=== PATIENT | female | born 1970 | race Caucasian/White ===

== ENCOUNTER 2020-11-01 19:50 | Emergency (ER) | payer BC, SELFPAY ==
[2020-11-01 20:00] VITALS: BP 131/80; PULSE 80; RESP 18; TEMP 36.6; O2SAT 97; BMI 31.1
--- NOTE | 2020-11-01 21:09 | HMH.EDUTC ---
[facility] [place] Clinical Impression: Exposure to COVID-19 virus Disposition: Home, Self-Care Condition on Discharge: Good Instructions: DI for COVID-19 (Suspected or Confirmed ), Preventing the Spread of Coronavirus Discharge Instructions Additional Instructions: Drink plenty of fluids. Take tylenol for pain or fever. Return if you begin to have difficulty breathing. Follow up with your regular doctor. GO TO THE ER FOR ANY WORSENING SYMPTOMS Quarantine until you know the results of your covid-19 test. If it is positive, the health department should call you and give you further instructions about your length of Quarantine and other things. Notify your school or workplace of your results and follow their instructions regarding return to work/school. Referrals: Gilbert Hernandez MD [Primary Care Provider] - Time of Disposition: 21:10 Medical Decision Making - Medical Records Medical records reviewed: No: I reviewed the patient's medical records. - Walter Inquiry Pt receiving controlled substance: No Vital Signs: 11/01/20 20:00 11/01/20 21:11 Temperature 97.9 F 97.9 F Temperature Source Oral Pulse Rate 80 Pulse Rate [Right Brachial] 80 Respiratory Rate 18 18 Blood Pressure 131/80 Blood Pressure [Right Arm] 131/80 Blood Pressure Mean [Right Arm] 97 Blood Pressure Source [Right Arm] Automatic Cuff Blood Pressure Position [Right Arm] Sitting 02 Sat by Pulse Oximetry 97 Oxygen Delivery Method Room Air Orders (Tests/Meds): ORDERS Category Date Time Status Covid-19 Nasal PCR ([facility]) Routine Lab 11/01/20 20:10 Received [facility] [place] HPI - General Stated complaint: covid test Time Seen by Provider: 11/01/20 20:10 Mode of Arrival: Ambulatory Source of Information: Patient Limitations: No Limitations Description of Symptoms (Recalled from Triage Doc. by RN): COVID TEST D/T EXPOSURE. C/O RUNNY NOSE AND EARACHE HEENT Symptoms (Recalled from RN notes): No Resp Symptoms (Recalled from RN notes): No Skin Symptoms (Recalled from RN notes): No MS Symptoms (Recalled from RN notes): No Functional Status (Recalled from RN notes): wnl - Related Data Home Medications Medication Instructions Recorded Confirmed lisinopril 10 mg tablet 10 mg PO DAILY 09/19/17 rosuvastatin 40 mg tablet 40 mg PO DAILY 09/19/17 fluticasone propionate 50 1 spray INTRANASAL DAILY 08/28/18 08/28/18 mcg/actuation nasal spray,suspension Previous Rx's Medication Instructions Recorded cetirizine 10 mg capsule 10 mg PO DAILY #30 cap 08/28/18 Allergies Allergy/AdvReac Type Severity Reaction Status Date / Time Penicillins Allergy Verified 08/28/18 12:54 - Worker's Comp Is this a Worker's Comp case?: No [facility] History - Hepatitis A Screen Drug use history?: No High risk sexual behaviors?: No History of sexually transmitted infection?: No Currently employed?: No Childcare worker?: No Do you have indoor plumbing?: Yes Do you have electricity?: Yes Attestation statement:: This patient has been screened for Hepatitis A risk factors. I have reviewed the patient's past medical history: Yes Medical History: Reports:: Hyperlipidemia, Hypertension Denies:: Cancer, Diabetes Mellitus Type 1, Diabetes Mellitus Type 2, MRSA Other Surgeries: Yes: No Previous Surgery Amputation: No Fractures: No - Social History Smoking Status: Never smoker Tobacco Type: cigarettes Alcohol Intake: current Alcohol Intake Frequency:: a few times a month Substance Use Type: denies use Occupational Status: employed Housing: house Household Members: family Family Hx:: No significant family history ROS Obtained: Yes All systems reviewed & no additional complaints - Constitutional Constitutional: Reports system reviewed and no additional complaints, except as docu - Eyes Eyes: Reports system reviewed and no additional complaints, except as docu - ENT Ears, Nose, Mouth, and Throat: Reports system review
[2020-11-01 21:11] VITALS: BP 131/80; PULSE 80; RESP 18; TEMP 36.6; O2SAT 97
== END 2020-11-01 21:16 | disposition home or self-care (01) ==
PROVIDERS: Emergency Provider Nurse Practitioner Family; PCP Family Medicine
DX: Z20.822 Contact with and (suspected) exposure to COVID-19 (principal); R09.81 Nasal congestion; H92.03 Otalgia, bilateral; E78.5 Hyperlipidemia, unspecified; I10 Essential (primary) hypertension
CPT/HCPCS: 99202; C9803; G0463; U0003; U0005

== ENCOUNTER → 2021-03-23 10:24 | Outpatient (CLI) | payer BC, SELFPAY | PROVIDERS: Visit Provider Nurse Practitioner | DX: U07.1 COVID-19 (principal) | CPT/HCPCS: C9803; U0003; U0005 ==

== ENCOUNTER → 2021-04-24 10:46 | Outpatient (CLI) | payer BC, SELFPAY ==
--- NOTE | 2021-04-24 11:20 | ECG_ITS ---
APPROVED REPORT Exam: Resting ECG HR:85 bpm ECG Measurements Heart Rate 85 AXES NJ 142 P 34 QRSd 97 QRS 52 QT 344 T 28 QTc 386 Conclusion SINUS RHYTHM NORMAL ECG UNCONFIRMED REPORT Electronically signed by : Raul Deglado MD 04/24/2021 17:26:25
[2021-04-24 11:43] LABS: Basophils # 0.1 K/mm3 (0-0.2); Basophils % 1.7 % (0.1-2.0); Eosinophils # 0.1 K/mm3 (0.0-0.4); Eosinophils % 1.4 % (0.1-12.0); Hematocrit 39.5 % (37.0-47.0); Hemoglobin 12.9 g/dL (12.2-16.2); Lymphocytes # 2.5 K/mm3 (0.7-4.5); Mean Corpuscular HGB Conc 32.7 g/dL (31.8-35.4); Mean Corpuscular Hemoglobin 29.9 pg (27.0-31.2); Mean Corpuscular Volume 91.5 fl (81-99); Mean Platelet Volume 8.6 fl (7.4-10.4); Monocytes # 0.4 K/mm3 (0.1-1.0); Monocytes % 5.4 % (1.7-9.3); Neutrophils # 4.2 K/mm3 (1.8-7.8); Neutrophils % 57.5 % (37.0-80.0); Platelet Count 266 K/mm3 (142-424); Red Blood Count 4.31 M/mm3 (4.20-5.40); Red Cell Distribution Width 13.4 % (11.5-17.5); White Blood Count 7.3 K/mm3 (4.8-10.8)
[2021-04-24 11:49] LABS: Chloride 101 mmol/L (98-107); Sodium 134 mmol/L (136-145)
[2021-04-24 11:51] LABS: Blood Urea Nitrogen 14 mg/dl (7-17); Estimated Glomerular Filt Rate 105 ml/min (>60); GFR (African American) 127 ML/MIN (>60)
[2021-04-24 11:52] LABS: Alanine Aminotransferase 16 U/L (12-78); Albumin Level 4.4 g/dl (3.5-5.0); Albumin/Globulin Ratio 1.6 (1.1-1.8); Alkaline Phosphatase 81 U/L (38-126); Aspartate Amino Transferase 25 U/L (14-36); Bilirubin,Total 0.6 mg/dl (0.2-1.3); Calcium 8.3 mg/dl (8.4-10.2); Carbon Dioxide 24 mmol/L (22.0-30.0); Cholesterol 154 mg/dl (140-200); Globulin 2.8 g/dL (1.3-3.2); Glucose 90 mg/dl (74-100); Total Protein,Serum 7.2 g/dl (6.3-8.2); Triglycerides 142 mg/dl (30-150); VLDL Cholesterol 28 mg/dL (0-40)
[2021-04-24 11:53] LABS: HDL Cholesterol 52 mg/dl (40-60)
[2021-04-24 12:04] LABS: Direct LDL Cholesterol 80.18 mg/dL (100-129)
[2021-04-24 12:22] LABS: 25-OH Vitamin D, Total 68.9 ng/mL (30-100)
[2021-04-24 12:25] LABS: Thyroid Stimulating Hormone 1.77 uIU/mL (0.465-4.68)
[2021-04-24 13:28] LABS: Creatinine,Urine Random 32 mg/dL (Not Estab.)
[2021-04-24 13:32] LABS: Microalbumin/Creatinine Ratio 19.3
[2021-04-24 17:08] LABS: Hemoglobin A1C 5.7 % (4.0-6.0)
== END ==
PROVIDERS: PCP Family Medicine; Visit Provider Family Medicine
DX: R00.0 Tachycardia, unspecified (principal); I10 Essential (primary) hypertension; E78.2 Mixed hyperlipidemia; R73.01 Impaired fasting glucose; E55.9 Vitamin D deficiency, unspecified
CPT/HCPCS: 36415; 80053; 80061; 82043; 82306; 82570; 83036; 84443; 85025; 93005

== ENCOUNTER → 2021-10-03 11:24 | Outpatient (CLI) | payer BC, OTHER, SELFPAY ==
--- NOTE | 2021-10-03 11:27 | XR_ITS ---
FINAL REPORT CLINICAL HISTORY: RT KNEE PAIN FINDINGS: RIGHT KNEE 3 views of the right knee were obtained. There is no acute fracture or dislocation. Visualized joint spaces are normally aligned. Soft tissues are unremarkable. IMPRESSION: No acute bony abnormality. Reviewed, Interpreted and Dictated by Shamir Brwon MD Transcribed by Tracy Gross Authenticated and [facility]
== END ==
PROVIDERS: PCP Family Medicine; Visit Provider Physician Assistant
DX: M25.561 Pain in right knee (principal)
CPT/HCPCS: 73562

== ENCOUNTER → 2021-11-07 08:57 | Outpatient (CLI) | payer BC, OTHER, SELFPAY ==
--- NOTE | 2021-11-07 09:15 | MR_ITS ---
FINAL REPORT TECHNIQUE: Multiplanar MR without contrast CLINICAL HISTORY: ACUTE PAIN OF RIGHT KNEE. KNEE INSTABILITY. MEDIAL SIDED KNEE PAIN. SYMPTOMS 6 MONTHS. NO INJURY OR TRAUMA. FINDINGS: Articular cartilage: Localized thinning of the medial tibial plateau. Remaining articular cartilage unremarkable. Marrow signal: Moderate marrow edema in the medial tibial plateau likely a combination of cartilage disease and meniscal disease. Joint fluid: Small joint effusion. Menisci: Macerated tear of the root of the anterior horn of the medial meniscus. Radial tear of the root of the posterior horn of the medial meniscus. Lateral meniscus intact. Ligaments: Collateral and cruciate ligaments intact IMPRESSION: Medial meniscal tears as above. Significant marrow edema in the medial tibial plateau as described is likely symptomatic. Reviewed, Interpreted and Dictated by Felicia Cotton MD Transcribed by Tonny Doll Authenticated and [facility]
== END ==
PROVIDERS: PCP Family Medicine; Visit Provider Physician Assistant
DX: M25.561 Pain in right knee (principal)
CPT/HCPCS: 73721

== ENCOUNTER → 2022-10-13 15:08 | Outpatient (CLI) | payer BC, OTHER, SELFPAY ==
--- NOTE | 2022-10-13 15:19 | ECG_ITS ---
APPROVED REPORT Exam: Resting ECG HR:77 bpm ECG Measurements Heart Rate 77 AXES WA 143 P 7 QRSd 99 QRS 67 QT 348 T -15 QTc 380 Conclusion SINUS RHYTHM WITH SINUS ARRHYTHMIA NONSPECIFIC ST & T-WAVE ABNORMALITY ABNORMAL ECG UNCONFIRMED REPORT Electronically signed by : Raul Delgado MD 10/13/2022 19:54:17
--- NOTE | 2022-10-13 15:31 | XR_ITS ---
FINAL REPORT CLINICAL HISTORY: Pre op, cough FINDINGS: Two views of the chest were obtained. The heart size and pulmonary vascularity are within normal limits. The mediastinum is normal. No acute pulmonary abnormality is identified. There is no pneumothorax. The bony thorax is intact. IMPRESSION: No active cardiopulmonary disease. Reviewed, Interpreted and Dictated by Dmitry Hays III, MD Transcribed by Molly England Authenticated and [facility]
[2022-10-13 17:11] LABS: Basophils % 0.3 % (0.1-2.0); Eosinophils # 0.1 K/mm3 (0.0-0.4); Eosinophils % 1.2 % (0.1-12.0); Hematocrit 41.4 % (37.0-47.0); Hemoglobin 13.9 g/dL (12.2-16.2); Lymphocytes # 3.1 K/mm3 (0.7-4.5); Lymphocytes % 35.6 % (10-50); Mean Corpuscular HGB Conc 33.5 g/dL (31.8-35.4); Mean Corpuscular Hemoglobin 30.7 pg (27.0-31.2); Mean Corpuscular Volume 91.7 fl (81-99); Mean Platelet Volume 8.8 fl (7.4-10.4); Monocytes # 0.6 K/mm3 (0.1-1.0); Monocytes % 6.7 % (1.7-9.3); Neutrophils % 56.3 % (37.0-80.0); Platelet Count 296 K/mm3 (142-424); Red Blood Count 4.51 M/mm3 (4.20-5.40); Red Cell Distribution Width 12.8 % (11.5-17.5); White Blood Count 8.8 K/mm3 (4.8-10.8)
[2022-10-13 17:42] LABS: Chloride 100 mmol/L (98-107)
[2022-10-13 17:43] LABS: Potassium 3.9 mmoL/L (3.5-5.1); Sodium 138 mmol/L (136-145)
[2022-10-13 17:45] LABS: Alanine Aminotransferase 16 U/L (12-78); Alkaline Phosphatase 90 U/L (38-126); Aspartate Amino Transferase 26 U/L (14-36); Bilirubin,Total 0.3 mg/dl (0.2-1.3); Blood Urea Nitrogen 19 mg/dl (7-17); Estimated Glomerular Filt Rate 87 ml/min (>60); GFR (African American) 106 ML/MIN (>60)
[2022-10-13 17:46] LABS: Albumin Level 4.3 g/dl (3.5-5.0); Albumin/Globulin Ratio 1.3 (1.1-1.8); Anion Gap 13.9 mEq/L (5-15); Calcium 10.1 mg/dl (8.4-10.2); Carbon Dioxide 28 mmol/L (22.0-30.0); Globulin 3.2 g/dL (1.3-3.2); Glucose 79 mg/dl (74-100); Total Protein,Serum 7.5 g/dl (6.3-8.2)
== END ==
PROVIDERS: PCP Family Medicine; Visit Provider Orthopaedic Surgery
DX: Z01.818 Encounter for other preprocedural examination (principal); S83.241D Other tear of medial meniscus, current injury, right knee, subsequent encounter
CPT/HCPCS: 36415; 71046; 80053; 85025; 93005

== ENCOUNTER 2022-10-20 08:28 | Day surgery (SDC) | payer BC, OTHER, SELFPAY ==
[2022-10-19 13:44] VITALS: BMI 30.4
[2022-10-20] VITALS (8 sets, daily range): BP systolic 123–163; BP diastolic 60–89; PULSE 70–88; RESP 14–18; TEMP 36.3–37; O2SAT 95–99
[2022-10-20 09:19] LABS: Urine Pregnancy, HCG Qual. Negative (Negative)
--- NOTE | 2022-10-20 09:45 | EXP.ANES.CKL ---
[facility] Disclaimer: The information contained in this section may have been updated after the patient was seen, as this information can be updated by other users. Medical History Allergies Edema History of COVID-19 Hyperlipidemia Hypertension Sinus headache Skin cancer Urinary tract infection Surgical History No significant past surgical history Family History Other Heart disease Pacemaker Social History Smoking Status: Never smoker alcohol intake: never substance use type: denies use current occupational status: employed Travel in the last 8 weeks: None household members: family housing: house [facility] Anesthesia Checklist Patient Identification Patient Identification: Arm Band Structural Data Admitted From: Home Planned Operative Procedure/s: Right Knee Arthroscopy, Partial Medial Meniscectomy Consent for Planned Operative Procedure(s) Verified: Yes Verified Documents: Surgical Consent and History and Physical NPO Status Verified Time NPO: 00:00 Additional verifications Anesthesia Reactions: No Hx Blood Transfusions: No Airway Assessment Mallampati Score:: Class II C-Spine Mobility Assessed: Yes TMJ Mobility Assessed: Yes Dentition: Good Dentition Neurological Assessment Level of Consciousness: Awake and Alert Anesthesia Plan Anesthesia Risk discussed: Yes Anesthesia Plan: Verified ASA Class: II Anesthesia Type: General
--- NOTE | 2022-10-20 11:11 | EXP.OP.NOTE ---
Date of procedure: 10/20/22 Pre-op Diagnosis:: Right knee medial meniscus tear Post-op Diagnosis:: Right knee medial meniscus tear Procedure performed:: Right knee arthroscopy with partial medial meniscectomy Surgeon:: Bernabe Lundberg MD Radiotelephone Operator(s):: None STATISTICAL PROGRAMMER:: Other Anesthesia: GETA and local Estimated blood loss (mL): 5 Clinical Note:: Lakisha is a pleasant 52-year-old female struggling with right knee pain secondary to a medial meniscus tear. 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 Right knee cortisone injections have provided temporary relief and she takes occasional ibuprofen. A right knee MRI revealed mild degenerative changes and a radial tear posterior horn medial meniscus. We discussed all the risks, benefits and alternatives to right knee arthroscopy for partial medial meniscectomy and she agreed to proceed. Surgical consent form was signed. Operative findings:: Right knee radial tear posterior horn medial meniscus with undersurface flap tear. Mild chondromalacia medial compartment. Operative note:: The patient was seen in the preoperative holding area. The right knee was marked to confirm the correct operative site. She was seen by anesthesia. She received Ancef 2 g IV prophylactic antibiotics within 1 hour of incision time. She was brought back to the OR. General anesthesia induced without difficulty. Right lower extremity prepped and draped in the usual sterile fashion. Timeout performed to confirm right knee arthroscopy on patient Lakisha Soliman. I made an anterolateral viewing portal with an 11 blade scalpel. Arthroscope was introduced into the knee joint. Diagnostic arthroscopy commenced. Anteromedial portal was established with a spinal needle and then an 11 blade scalpel as well. This was dilated with a trocar. There was minimal chondromalacia of the patellofemoral compartment with no full-thickness cartilage loss or no unstable cartilage flaps. Evaluation of the medial compartment revealed a radial tear posterior horn of the medial meniscus with an unstable inferior flap tear. This was treated with a partial medial meniscectomy using a straight biter and a 4.0 mm shaver to resect out the unstable inferior flap and ellipse out the radial tear back to a smooth stable border. The root attachment was intact. There was some mild chondromalacia of the medial femoral condyle and medial tibial plateau that was debrided with a shaver. There was a small area of full-thickness cartilage loss medial aspect medial femoral condyle and medial tibial plateau. Cruciate ligaments were seen to be intact. She was placed in the [id number] position. We entered the lateral compartment. There was some mild fraying of the lateral meniscus but no lateral meniscus tear. Minimal chondromalacia of the lateral compartment. At this time arthroscopy instruments removed from the joint. Arthroscopy fluid suctioned and drained from the joint. Portals closed with 4-0 Monocryl subcuticular sutures. I injected 20 cc of half percent naropin into the knee from the superolateral approach. Sterile dressing was applied with Steri-Strips, Xeroform, 4 x 4's, soft roll and Prince bandage. Anesthesia reversed without difficulty. All sponge and needle counts correct x2. Postoperative plan: She will be discharged home from recovery. We will prescribe oxycodone for pain and aspirin for DVT prophylaxis. Weight-bear as tolerated with crutch assist as needed. Follow-up in the office in 3 weeks. Tourniquet time (min): 0 Condition: stable Disposition: PACU Specimens:: None Complications:: None
--- NOTE | 2022-10-21 07:42 | P.PNANES_ITS ---
[facility] Anesthesia Record Part I Anesthesia Record I Intake, IV Amount: 1,000 Hydration: Adequate Estimated blood loss (mL): 5 Urine output (mL): 0 Blood Products used (#): none Blood Pressure: 137/66 SaO2: 96 Pulse Rate: 85 Airway Patency: Patent Respiratory Rate: 14 Temperature: 97.4 F Patient is:: Drowsy and Stable Stable to PACU at:: 11:00 (10/20/22) Comments:: Procedure performed by Felicia Hernadez CRNA
[2022-10-21 07:44] VITALS: BP 137/66; PULSE 85; RESP 14; TEMP 36.3; O2SAT 96
--- NOTE | 2022-10-21 07:44 | P.PNANES_ITS ---
[facility] Anesthesia Record Part II Anesthesia Record Part II Discharge Time: 11:30 Destination: Surgical Day Care (OP Surgery) PACU nurse assessment reviewed?: Yes Patient Condition:: Good Anesthesia Complications:: None Swallowing reflex intact?: Yes Airway Patency: Patent Cyanosis?: No Blood Pressure: 132/79 SaO2: 96 Respiratory Rate: 16 Pulse Rate: 70 Temperature: 98.5 F Mental Status: Alert & Oriented Pain level:: 3 Nausea and/or vomitting:: None Intake, IV Amount: 0 Hydration: Adequate
[2022-10-21 07:45] VITALS: BP 132/79; PULSE 70; RESP 16; TEMP 36.9; O2SAT 96
== END 2022-10-20 12:06 | disposition home or self-care (01) ==
PROVIDERS: PCP Family Medicine; Visit Provider Orthopaedic Surgery
PROC: (CPT 29870; principal; 2022-10-20 10:15)
DX: S83.241A Other tear of medial meniscus, current injury, right knee, initial encounter (principal); M17.11 Unilateral primary osteoarthritis, right knee; M25.561 Pain in right knee; I10 Essential (primary) hypertension
CPT/HCPCS: 29881; 81025; 96374

== ENCOUNTER → 2022-12-14 14:57 | Outpatient (CLI) | payer BC, OTHER, SELFPAY ==
--- NOTE | 2022-12-14 15:00 | XR_ITS ---
FINAL REPORT CLINICAL HISTORY: Lt knee pain COMPARISON: None FINDINGS: AP, lateral and oblique views of the left knee were obtained. There is no prior exam for comparison. There is no acute osseous abnormality of the left knee. The joint space is preserved. The soft tissues are normal. There is no joint effusion. IMPRESSION: No acute osseous abnormality of the left knee. Reviewed, Interpreted and Dictated by Ara Jha MD Transcribed by Isdira Escobedo Authenticated and [facility]
== END ==
PROVIDERS: PCP Family Medicine; Visit Provider Orthopaedic Surgery
DX: M17.12 Unilateral primary osteoarthritis, left knee (principal)
CPT/HCPCS: 73562

== ENCOUNTER 2023-01-20 10:00 | Outpatient (RCR) | payer BC, OTHER, SELFPAY ==
--- NOTE | 2022-11-24 16:53 | HMH.PTOPEV ---
PT Outpatient Evaluation Rehab PT Outpatient Evaluation Start: 11/24/22 14:57 Freq: Status: Active Protocol: Document 11/24/22 14:57 GREGLALIT (Rec: 11/24/22 16:53 RUPERT [id number]) E-signed By Elizabeth Mcnally, PT Outpatient Therapy Subjective History Subjective History Pt is a 52 y/o female who reports to PT s/p R knee arthroscopy with partial medial meniscectomy performed on 10/20/22. Pt denies complications following the surgery. Pt reports she was doing well until 3 weeks after surgery then she started having stiffness and soreness of the right knee. Pt reports she has been WBAT since the surgery and doing well ambulating without an AD. Pt reports the knee does seem to buckle on her with prolonged walking. Pt reports she does have swelling of the R knee with increased activity, denies numbness or tingling. Pt reports she has been using her stationary bike at home, bending/straightening the knee , doing ankle pumps and quad sets on her own since surgery. Pt also states she injured her left knee Wednesday while stepping up into a camper with her left leg. Pt reports she heard a pop with sudden pain of the posterior and lateral knee with inability to bear weight on the LLE until Wednesday . Pt reports she has been experiencing buckling of the L knee as well with noted swelling following the injury. Pt reports she continues to have severe posterolateral calf pain from this. Pt reports she returns to Dr. Lundberg for a follow-up visit on December 09. Occupation: [employer], [employer]visor [employer] Medical History: Hyperlipidemia, Hypertension New diagnosis of cancer in past 12 No months? Chief Complaint Pain,Stiff,Clicks,Swelling, Catches/Locks,Gives out/ Unstable Symptom Type Ache,Sharp,Dull Symptoms Relieved By Rest/Positioning,Heat,Ice,OTC Meds Symptoms Aggravated By Standing,Physical Activity, Twisting,Walking Prior Functional Limitations None Current Functional Limitations Housework,Dressing,Sleeping, Standing,Recreation Activity, Walking,Stairs Symptom Description Intermittent Level of pain today (0-10) 0 Pain scale - at its best (0-10) 5 Pain scale - at its worst (0-10) 9 Hip/Knee Eval Gait Observation General Gait Pattern Observation Antalgic Gait,Decrease Weight Bear (L) Assistive Device Assistive Devices None / NA Palpation Tenderness left Knee Palpation Finding Tenderness Knee Palpation Overall Comment lateral calf, lateral joint line right Knee Palpation Finding Tenderness Knee Palpation Overall Comment anterior knee, medial joint line MMT left Hip Flexion Strength Grade 5 Normal Hip Abduction Strength Grade 4 Good Hip Adduction Strength Grade 4 Good Hip Extension Strength Grade 4 Good Knee Extension Strength Grade 5 Normal Knee Flexion Strength Grade 4 Good right Hip Flexion Strength Grade 5 Normal Hip Abduction Strength Grade 4 Good Hip Adduction Strength Grade 4 Good Hip Extension Strength Grade 4 Good Knee Extension Strength Grade 4 Good Knee Flexion Strength Grade 4 Good ROM left Knee Extension Active Range of Motion ( 0 degrees) Knee Flexion Active Range of Motion ( 125 degrees) right Knee Extension Active Range of Motion ( 0 degrees) Knee Flexion Active Range of Motion ( 122 degrees) Sensation bilateral Comment equal and intact to light touch sensation bilaterally Effusion joint effusion knee exam standard bilateral Mid - Patellar Circumerential Measure ( 39 cm) Special Tests Knee Anterior Prisiclla Test Negative Left Knee Posterior Sag (Westfall Drawer) Test Negative Left Knee Valgus Stress Test Negative Left Knee Varus Stress Test Negative Left Knee Rosa Maria Test Negative Left Ankle/Foot Eval MMT left Ankle Plantarflexion Strength Grade 4- Good- Lower Extremity Functional Index Activities Today, do you or would you have any difficulty at all with: a.Any of your usual work, housework or Quite a bit of difficulty school activities b. Your usual hobbies, recreational or Quite a bit of difficulty sporting activities c. Getting into or out of the bath Moderate difficulty d. Walking between rooms Moderate difficulty e. Putting on your shoes or socks A little bit of difficulty f. Squatting Extreme difficulty or unable to perform activity g. Lifting an object, like a bag of A little bit of difficulty groceries from the floor h. Performing light activities around A little bit of difficulty your home i. Performing heavy activities around Extreme difficulty or unable your home to perform activity j. Getting into or out of a car A little bit of difficulty k. Walking 2 blocks Extreme difficulty or unable to perform activity l. Walking a mile Extreme difficulty or unable to perform activity m. Going up or down 10 stairs (about 1 Quite a bit of difficulty flight of stairs) n. Standing for 1 hour Extreme difficulty or unable to perform activity o. Sitting for 1 hour Extreme difficulty or unable to perform activity p. Running on even ground Extreme difficulty or unable to perform activity q. Running on uneven ground Extreme difficulty or unable to perform activity r. Making sharp turns while running fast Extreme difficulty or unable to perform activity s. Hopping Extreme difficulty or unable to perform activity t. Rolling over in bed Moderate difficulty LEFI Score Lower Extremity Functional Index Score 21 Outpatient Therapy Assessment Impairments Problems/Impairmments Palpation Tenderness,Impaired Range of Motion,Impaired Strength,Impaired Gait Pattern ,Impaired Walking,Impaired Standing,Impaired Dressing, Impaired Household Care, Impaired Stair Climbing, Impaired Incline Stepping, Impaired Stepping on Uneven Surface,Impaired Squatting, Increased Edema,Subjective C/O Pain,Impaired Self Care/Self Management Prognosis Rehab Potential Good Clinical Impression Consistent with Diagnosis Yes Short Term Goals Number of Weeks 3 Decrease Subjective C/O Pain Yes: Improve pain at worst to 7/10 to improve overall QOL Improve Self Care/Self Management Yes: Improve LEFS score to at least 40/80 to improve overall QOL Patient to be Ind w/ HEP Yes Mcfp Goals Number of Weeks 6 Increase Range of Motion Yes: Improve R knee AROM to 0- 125 Increase Strength Yes: Improve LE MMT to 4+-5/5 to assist with function Improve Ability to Climb Stairs Yes: 1 flight with 1 HR recirpocally to assist with community navigation Improve Ability to Squat Yes Decrease Edema Yes Decrease Subjective C/O Pain Yes: Improve pain at worst to 5/10 to improve overall QOL Improve Self Care/Self Management Yes: Improve LEFS score to at least 60/80 to improve overall QOL Patient to be Ind w/ Advanced HEP Yes Outpatient Therapy Plan of Care Treatment Plan May Include Therapeutic Exercise Including Home Yes Exercise Program Manual Therapy Techniques Yes Neuromuscular Re-education Yes Therapeutic Activities to Return to Yes Previous Functional/Work Level ADL/Self Care Education Yes Dry Needling Yes Thermal Modalities Yes Electrical Stimulation Yes Ultrasound/Phonophoresis Yes Iontophoresis Yes Orthotics/Bracing/Splinting Yes Vasopneumatic Compression Pump Yes Massage Yes Group Therapy for Medicare Yes Eval/Re-Eval Yes Frequency Times per week 2 Duration Number of Weeks 4-6 Addendums This patient is a candidate for social No or vocational rehab? Patient/Guardian verbally acknowledges Yes understanding of treatment program and consents to further treatment? Patient/Guardian verbally acknowledges Yes understanding of diagnosis, prognosis and goals for treatment? Eval Complexity PT Charges 85621 - Low Complexity Shoulder/Elbow Eval Shoulder Objective Measurements Elbow Objective Measurements PHYSICIAN CERTIFICATION: I certify the specified therapy services for Lakisha Lauraon are required, authorized, and reviewed every 30 days.
--- NOTE | 2022-12-21 13:59 | HMH.RHREAS ---
Rehab Reassessment Rehab OP Re-assessment Start: 11/24/22 14:57 Freq: Status: Active Protocol: Document 12/21/22 13:15 MARTÍNEZYADIRA (Rec: 12/21/22 13:59 GUILHERMEBilly [id number]) E-signed By Elizabeth Mcnally PT Lower Extremity Functional Index Activities Today, do you or would you have any difficulty at all with: a.Any of your usual work, housework or A little bit of difficulty school activities b. Your usual hobbies, recreational or A little bit of difficulty sporting activities c. Getting into or out of the bath No difficulty d. Walking between rooms No difficulty e. Putting on your shoes or socks No difficulty f. Squatting A little bit of difficulty g. Lifting an object, like a bag of No difficulty groceries from the floor h. Performing light activities around No difficulty your home i. Performing heavy activities around A little bit of difficulty your home j. Getting into or out of a car No difficulty k. Walking 2 blocks A little bit of difficulty l. Walking a mile A little bit of difficulty m. Going up or down 10 stairs (about 1 A little bit of difficulty flight of stairs) n. Standing for 1 hour A little bit of difficulty o. Sitting for 1 hour No difficulty p. Running on even ground A little bit of difficulty q. Running on uneven ground A little bit of difficulty r. Making sharp turns while running fast A little bit of difficulty s. Hopping A little bit of difficulty t. Rolling over in bed No difficulty LEFI Score Lower Extremity Functional Index Score 68 Rehab Re-assessment Subjective Subjective Pt reports she feels 90% improved since starting PT. Pt reports she does still have intermittent medial right knee pain rated 6/10 at worst. 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 Pt reports her L knee has improved a lot as well with only minimal 2-3/10 medial pain at worst. Pt reports she is planning to return back to work on 01/05/23. Objective Objective Notes R knee AROM: 0-125 RLE MMT: hip abd/ext 4+/5, knee ext 5/5, knee flex 5/5 Tibiofemoral joint line girth: 38.5 cm Squat form: mild valgus noted, able to correct with verbal cueing L knee AROM: 0-125 LLE MMT: hip abd/ext 4+/5, knee ext 5/5, knee flex 5/5 Assessment Progress Assessment Progressing as Expected Assessment Notes Pt has attended 7 PT visits consisting of aerobic exercise , knee AROM, LE stretching/ strengthening, HEP and modalities with good tolerance . Pt demonstrated improved R knee AROM, edema, LE strength and LEFS score this date compared to the initial evaluation. Pt also presented with improved subjective report of pain compared to the initial evaluation although she continues to report moderate medial knee pain at times. Pt would continue to benefit from skilled PT to further improve pain, functional strength and stability to assist with occupational activities and improve overall QOL. Patient goals met ST/3 LT/8 Goals Not Met Squatting, pain severity at worst Revised Goals n/a Plan Plan Continue initial POC, focus on functional strengthening to assist with return to work Frequency of Therapy 2x/week Duration of therapy 2 more weeks Time and Billing Re-Eval Time 10 Re-Eval Billing Units 1 PHYSICIAN CERTIFICATION: I certify the specified therapy services for Lakisha Soliman are required, authorized, and reviewed every 30 days.
--- NOTE | 2023-01-20 14:27 | HMH.RHREAS ---
Rehab Reassessment Rehab OP Re-assessment Start: 11/24/22 14:57 Freq: Status: Active Protocol: Document 01/20/23 10:30 GUILHERMEBilly (Rec: 01/20/23 14:27 RUPERT [id number]) E-signed By Elizabeth Mcnally PT Lower Extremity Functional Index Activities Today, do you or would you have any difficulty at all with: a.Any of your usual work, housework or A little bit of difficulty school activities b. Your usual hobbies, recreational or A little bit of difficulty sporting activities c. Getting into or out of the bath A little bit of difficulty d. Walking between rooms A little bit of difficulty e. Putting on your shoes or socks No difficulty f. Squatting A little bit of difficulty g. Lifting an object, like a bag of No difficulty groceries from the floor h. Performing light activities around A little bit of difficulty your home i. Performing heavy activities around Moderate difficulty your home j. Getting into or out of a car No difficulty k. Walking 2 blocks Moderate difficulty l. Walking a mile Moderate difficulty m. Going up or down 10 stairs (about 1 Moderate difficulty flight of stairs) n. Standing for 1 hour Moderate difficulty o. Sitting for 1 hour No difficulty p. Running on even ground Moderate difficulty q. Running on uneven ground Moderate difficulty r. Making sharp turns while running fast Moderate difficulty s. Hopping Moderate difficulty t. Rolling over in bed No difficulty LEFI Score Lower Extremity Functional Index Score 56 Rehab Re-assessment Subjective Subjective Pt reports increased bilateral knee pain R>L following return to work on 01/05/23. Pt reports she mostly has pain with walking on concrete floors at work, kneeling/deep squatting, and climbing ladders. Pt reports pain as 7/ 10 at worst described as an ache of the medial aspect of both knees. Pt reports she is compliant with her HEP which does seem to help. Pt reports she returns to her surgeon this Wednesday for a follow-up visit. Objective Objective Notes Tibiofemoral joint line girth: 39 cm R knee AROM: 0-125 RLE MMT: hip abd/ext 4+/5, knee ext 5/5, knee flex 5/5 L knee AROM: 0-125 LLE MMT: hip abd/ext 4+/5, knee ext 5/5, knee flex 5/5 Assessment Progress Assessment Progressing as Expected Assessment Notes Pt has attended 12 PT sessions consisting of aerobic exercise, LE stretching/ strengthening, knee AROM, HEP and modalities with good tolerance. Pt demonstrated regression of progress with R knee edema, subjective report of pain and LEFS score this date following return to work on 01/05/23. Pt reports medial knee pain with functional activities and prolonged walking at work. Pt would continue to benefit from skilled PT to further assist with pain, edema, functional activity tolerance and mechanics to assist with work activities. Patient goals met LT/8 Goals Not Met p! at worst, LEFS score, edema Revised Goals n/a Plan Plan Continue initial POC Frequency of Therapy 2x/week Duration of therapy 2 more weeks Time and Billing Re-Eval Time 10 Re-Eval Billing Units 1 PHYSICIAN CERTIFICATION: I certify the specified therapy services for Lakisha Soliman are required, authorized, and reviewed every 30 days.
== END 2023-01-20 11:00 | disposition home or self-care (01) ==
LOC: PT 10:00
PROVIDERS: PCP Family Medicine; Visit Provider Orthopaedic Surgery
DX: M25.561 Pain in right knee (principal); M17.11 Unilateral primary osteoarthritis, right knee; S83.241D Other tear of medial meniscus, current injury, right knee, subsequent encounter; Z98.890 Other specified postprocedural states
CPT/HCPCS: 97010; 97014; 97016; 97110; 97163; 97164; 97530; G0283

== ENCOUNTER 2023-08-16 10:54 | Outpatient (CLI) | payer BC, OTHER, SELFPAY ==
--- NOTE | 2023-08-16 10:57 | XR_ITS ---
FINAL REPORT CLINICAL HISTORY: Bilateral Knee Pain COMPARISON: None FINDINGS: Three views of the left knee reveal no evidence of fracture or dislocation. The bony alignment is normal. Mild degenerative changes present. There is mild medial compartment narrowing. There is no evidence of joint effusion. No localized soft tissue abnormality is seen. IMPRESSION: No acute abnormality identified. Mild degenerative change. Reviewed, Interpreted and Dictated by Dmitry Hays III, MD Transcribed by Hannah Beauchamp Authenticated and [facility]
--- NOTE | 2023-08-16 10:57 | XR_ITS ---
FINAL REPORT CLINICAL HISTORY: Bilateral Knee Pain COMPARISON: None FINDINGS: Three views of the right knee reveal no evidence of fracture or dislocation. The bony alignment is normal. Mild to moderate degenerative changes present with moderate medial compartment narrowing. A small joint effusion is present. No localized soft tissue abnormality is identified. IMPRESSION: No acute abnormality identified. Mild to moderate degenerative changes with moderate medial compartment narrowing, and a small joint effusion. Reviewed, Interpreted and Dictated by Dmitry Hays III, MD Transcribed by Hannah Beauchamp Authenticated and [facility]
== END 2023-08-16 23:59 | disposition home or self-care (01) ==
LOC: RAD 10:54
PROVIDERS: PCP Family Medicine; Visit Provider Orthopaedic Surgery
DX: M25.561 Pain in right knee; M25.562 Pain in left knee; M17.0 Bilateral primary osteoarthritis of knee
CPT/HCPCS: 73562

== ENCOUNTER 2024-10-24 11:05 | Outpatient (CLI) | payer BC, OTHER, SELFPAY ==
--- OUTSIDE RECORDS SUMMARY | 2023-10-19 08:00 | XMS_ITS ---
Author Organization [facility] Address [address] [facility] [address] [place] [id number] Care Team Providers Care Manager Strategy Name Role Phone Gilbert Hernandez Primary Care Provider Results Component Value Reference Range Notes CBC Fingerstick (in house) Reviewed date:10/20/2023 08:52:19 AM Interpretation:Normal Performing Lab: Notes/Report: Normal wbc 8.5 3.5 - 10 lym 38.1% 15 - 50 mid 6.7% 2 - 15 gran 55.2% 35 - 80 rbc 4.52 3.5 - 5.5 hgb 13.4 11.5 - 16.5 hct 40.9 35 - 55 mcv 90.4 75 - 100 mch 29.6 25 - 35 mchc 32.7 31 - 38 plat 161 100 - 400 Glycohemoglobin A1c (in hous e) Reviewed date:10/20/2023 08:54:16 AM Interpretation:5.6 Normal Performing Lab: Notes/Report: 5.6 Normal glycohemoglobin 5.6% 5 - 6.5 % REASON FOR VISIT blood work Medications Medication SIG (Take, Route, Frequency, Duration) Notes Start Date End Date Status Rosuvastatin Calcium 40 MG 1 tab(s) oral ly once a day; Duration: 90 days Active Vitamin D-3 125 MCG (5000 UT) as directed Orally Active Ibuprofen 800 MG 1 tablet with food o r milk as needed Orally every 8 hrs Active Lisinopril-hydroCHLOROthiaz jonathan 10-12.5 MG 1 tab(s) orally once a day; Duration: 90 days Active Contrave 8-90 MG 2 tab(s) orally 2 ti mes a day 09/30/2016 Active Encounters Encounter Location Date Provider Diagnosis [facility] [address] [facility] [address] [place] [id number] 10/19/2023 Gilbert Hernandez Impaired fasting glucose R73.01 and Fatigue, unspecified type R53.83 Assessments Encounter Date Diagnosis (ICD Code) Assessment Notes Treatment Notes Treatment Clinical Notes Section Notes 10/19/2023 Impaired fasting glucose (ICD-10 - R73.01) 10/19/2023 Fatigue, unspecified type (ICD-10 - R53.83) Plan Of Treatment Next Appt Details Provider Name:Gilbert Garcia ry, 10/24/2024 10:30:00 AM, [address], [address], [place], [place], [id number], Progress Notes * PALMER BLAIRB: 9 (54 yo F)Acc No.[id number]:10/19/2023 Patient: ARELIS KNOWLES Provider: Eladio Hernandez M.D. :1970 A ge:53 Y S ex:Female Date:10/19/2023 Address:[address] [place] [address] , [place], [id number] Subjective: * Chief Complaints: * 1 . Blood work. * Medical History: * Medications: T aking Ibuprofen 800 MG Tablet 1 tablet with food or milk as needed Orally every 8 hrs , Taking Vitamin D-3 125 MCG (5000 UT) Tablet as directed Orally , Taking Contrave 8-90 MG Tablet Extended Release 12 Hour 2 tab(s) orally 2 times a day , Taking Lisinopril-hydroCHLOROthiazide 10-12.5 MG Tablet 1 tab(s) orally once a day , Taking Rosuvastatin Calcium 40 MG Tablet 1 tab(s) orally once a day , Medication List reviewed and reconciled with the patient Objective: * Vitals: Assessment: * Assessment: 1. I mpaired fasting glucose - R73.01 2 . F atigue, unspecified type - R53.83 Plan: * Treatment: Value Reference Range g lycohemoglobin 5.6% 5 - 6.5 % * Lesia Enriquez 10/19/2023 12:01:1 7 PM > Regina Lam 10/20/2023 8:54:08 AM >See phone encounter 2.?Fatigue, unspecified type?LAB: CBC Fingerstick (in house) (Collection Date & Time - 10/19/2023)? Normal* Value Reference Range w bc 8.5 3.5 - 10 * l ym 38.1% 15 - 50 * m id 6.7% 2 - 15 * g ran 55.2% 35 - 80 * r bc 4.52 3.5 - 5.5 * h gb 13.4 11.5 - 16.5 * h ct 40.9 35 - 55 * m cv 90.4 75 - 100 * m ch 29.6 25 - 35 * m chc 32.7 31 - 38 * p lat 161 100 - 400 * MinaLesia 10/19/2023 11:59:1 9 AM > * Procedure Codes: 3 6416 CAPILLARY BLOOD DRAW, 86686 CBC WITH AUTO DIFF, 29122 GLYCATED HEMOGLOBIN TEST, Modifiers: QW * Images: Billing Information: * Visit Code: * Procedure Codes: 54807 CAPILLARY BLOOD DRAW. 54064 CBC WITH AUTO DIFF. 09179 GLYCATED HEMOGLOBIN TEST. Modifiers: QW * Electronic signature of Dejah Hernandez MD on 10/24/2024 at 11:19 AM EDT Sign off status: Pending * Provider: Eladio Hernandez M.D. Date: 0 10/19/2023 Generated for Adonis phelps/Rohan/Kenyaitting on: 0 10/24/2024 11:19 AM EDT
--- OUTSIDE RECORDS SUMMARY | 2024-01-29 07:15 | XMS_ITS ---
Author Organization [facility] Address [address] [facility] [address] [facility] [address] [place] [id number] Care Team Providers Care Box Closing Machine Operator Name Role Phone Gilbert Hernandez Primary Care Provider Allergies Allergen (clinical drug ingredient) Drug/Non Drug Allergy documented on EMR Reaction Allergy Type Onset Date Status Penicillin Unknown Drug Allergy Active Results Component Value Reference Range Notes Influenza Screen (in house) Reviewed date:01/29/2024 11:53:01 AM Interpretation: Performing Lab: Notes/Report: results Neg CBC Fingerstick (in house) Reviewed date:01/29/2024 11:52:52 AM Interpretation: Performing Lab: Notes/Report: wbc 9.4 3.5 - 10 lym 23.0% 15 - 50 mid 5.1% 2 - 15 gran 71.9% 35 - 80 rbc 4.45 3.5 - 5.5 hgb 13.1 11.5 - 16.5 hct 40.2 35 - 55 mcv 90.3 75 - 100 mch 29.6 25 - 35 mchc 32.7 31 - 38 plat 207 100 - 400 Covid test (in house) Reviewed date:01/29/2024 11:53:09 AM Interpretation: Performing Lab: Notes/Report: Result: Neg REASON FOR VISIT sore throat, coughing, ache Medications Medication SIG (Take, Route, Frequency, Duration) Notes Start Date End Date Status Zithromax Z-Kory 250 MG as directed Orall y once daily; Duration: 5 day(s) 01/29/2024 Active Ibuprofen 800 MG 1 tablet with food o r milk as needed Orally every 8 hrs Active Cyclobenzaprine HCl 5 MG TAKE 1 TABLET B Y MOUTH THREE TIMES DAILY; Duration: 10 Active Rosuvastatin Calcium 40 MG Take 1 tablet by mouth once daily for 90 days; Duration: 90 Active Lisinopril-hydroCHLOROthiazi d e 10-12.5 MG Take 1 tablet by mouth once daily for 90 days; Duration: 90 Active Contrave 8-90 MG 2 tab(s) orally 2 ti mes a day 09/30/2016 Active Vitamin D-3 125 MCG (5000 UT) as directed Orally Active Vital Signs Blood pressure systolic 126 mm Hg 01/29/20 24 Blood pressure diastolic 84 mm Hg 024 Heart Rate 122 /min 01/29/2024 Height 61 in 01/29/2024 Weight 165.2 lbs 01/29/2024 BMI 31.21 kg/m2 01/29/2024 Encounters Encounter Location Date Provider Diagnosis [facility] [address] [facility] [address] [facility] [address] [place] [id number] 01/29/2024 Gilbert Hernandez Acute URI J06.9 Assessments Encounter Date Diagnosis (ICD Code) Assessment Notes Treatment Notes Treatment Clinical Notes Section Notes 01/29/2024 Acute URI (ICD-10 - J06.9) Plan Of Treatment Medication Medication Name Sig Start Date Stop Date Notes Zithromax Z-Kory 250 MG as directed Orall y once daily; Duration: 5 day(s) 01/29/2024 Next Appt Details Follow Up: prn, Reason: Provider Name:Gilbert Garcia ry, 10/24/2024 10:30:00 AM, [address] [facility] [address] [facility], [address], [place], [id number], Progress Notes * JACQUIE BLAIRNAJMAB: 9 (54 yo F)Acc No.[id number]:01/29/2024 Progress Notes Patient: ARELIS KNOWLES Provider: Eladio Hernandez M.D. :1970 A ge:53 Y S ex:Female Date:01/29/2024 Address:[address] [place] [address] [place] [id number] Subjective: * Chief Complaints: * 1 . Sore throat, coughing, ache. * HPI: E NT/respiratory: 53 year old female presents with c/o sore throat. c/o cough P t presents today with c/o cough without sputum production, sore throat and body aches. Pt sts that she started to feel bad on Wednesday. Pt works at [employer] so could be exposed to numerous illnesses. c/o body aches. * ROS: D ERMATOLOGY: no R roddy. n o H salty. G ASTROENTEROLOGY: no N ausea. n o V omiting. n o D iarrhea.? U ROLOGY: no D ifficulty urinating. n o B lood in urine. * Medical History: H ypertension, Hyperlipidemia, Hypertriglyceridemia, Vitamin D Deficiency, Cologuard, 2020, Osteoarthritis, right knee, Meniscal tear, right knee. * Surgical History: D ental , Basal Cell Carcinoma , Right Knee Ablasion 01/12/2024. * Family History: F ather: , diagnosed with Heart Disease, Stroke. M other: alive. C zena: alive. 1 brother(s) , 1 sister(s) . 2 son(s) - healthy. . Brother is . * Social History: C URRENT TOBACCO USE S moking Status: P juan m does NOT smoke. * Medications: T aking Ibuprofen 800 MG Tablet 1 tablet with food or milk as needed Orally every 8 hrs , Taking Vitamin D-3 125 MCG (5000 UT) Tablet as directed Orally , Taking Contrave 8-90 MG Tablet Extended Release 12 Hour 2 tab(s) orally 2 times a day , Taking Lisinopril-hydroCHLOROthiazide 10-12.5 MG Tablet Take 1 tablet by mouth once daily for 90 days , Taking Rosuvastatin Calcium 40 MG Tablet Take 1 tablet by mouth once daily for 90 days , Taking Cyclobenzaprine HCl 5 MG Tablet TAKE 1 TABLET BY MOUTH THREE TIMES DAILY , Medication List reviewed and reconciled with the patient * Allergies: P enicillin. Objective: * Vitals: W t:165.2, Temp:98.2, BP:126/84, HR:122, Nurse:MEHRDAD, Ht: 61, BMI:31.21. * Examination: E NT/Respiratory: General Appearance: N AD. E yes: P ERRLA, sclera clear. E ars: a uditory canals normal bilaterally, TM's WNL. O ral cavity : erythema without exudate on pharynx. N duong : n o cervical lymphadenopathy. H eart : R RR, normal S1 S2. L ungs: c lear to auscultation bilaterally. Assessment: * Assessment: 1. Ashly stack URI - J06.9 (Primary) Plan: * Treatment: Value Reference Range r esults Neg * [place] AllianceMónica holguinliliya Holley 01/29/2024 11 :29:01 AM > , Provider reviewed results while patient in office. ?LAB: CBC Fingerstick (in house) (Collection Date & Time - 01/29/2024)* Value Reference Range w bc 9.4 3.5 - 10 * l ym 23.0% 15 - 50 * m id 5.1% 2 - 15 * g ran 71.9% 35 - 80 * r bc 4.45 3.5 - 5.5 * h gb 13.1 11.5 - 16.5 * h ct 40.2 35 - 55 * m cv 90.3 75 - 100 * m ch 29.6 25 - 35 * m chc 32.7 31 - 38 * p lat 207 100 - 400 * Dara Hardy 01/29/2024 11 :30:34 AM > , Provider reviewed results while patient in office. ?LAB: Covid test (in house) (Collection Date & Time - 01/29/2024)* Value Reference Range R esult: Neg * Dara Hardy 01/29/2024 11 :28:26 AM > , Provider reviewed results while patient in office. * Procedure Codes: 8 7804 Flu Test- Nasal Swab, Modifiers: QW , 18524 COVID TEST IN HOUSE, Modifiers: QW , 18916 CAPILLARY BLOOD DRAW, 84309 CBC WITH AUTO DIFF * Follow Up: p rn * Images: Billing Information: * Visit Code: 84595 Office Visit, Est Pt., Level 3. * Procedure Codes: 86200 Flu Test- Nasal Swab. Modifiers: QW 02458 COVID TEST IN HOUSE. Modifiers: QW 11865 CAPILLARY BLOOD DRAW. 09251 CBC WITH AUTO DIFF. * Electronic signature of Dejah Hernandez MD on 10/24/2024 at 11:18 AM EDT Sign off status: Pending * Provider: Eladio Hernandez M.D. Date: 03/31/2023 Generated for Adonis phelps/Rohan/eTransmitting on: 0 10/24/2024 11:18 AM EDT History and Physical Notes * HPI (History of Present Illness) Category Sub-Category Detail Notes Category Not es ENT/respiratory sore throat cough Pt presents today wi th c/o cough without sputum production, sore throat and body aches. Pt sts that she started to feel bad on Wednesday. Pt works at [employer] so could be exposed to numerous illnesses body aches Examination Category Sub-Category Detail Notes Category Not es ENT/Respiratory Oral cavity : erythema without exudate on pharynx Ears: auditory canals norm al bilaterally, TM's WNL Neck : no cervical lymphade nopathy Heart : RRR, normal S1 S2 Lungs: clear to auscultatio n bilaterally General Appearance: NAD Eyes: PERRLA, sclera clear
--- OUTSIDE RECORDS SUMMARY | 2024-04-11 07:30 | XMS_ITS ---
Author Organization [facility] Address [address] [facility] [address] [facility] [address] [place] [id number] Care Team Providers Care Pony Edger Name Role Phone Gilbert Hernandez Primary Care Provider Vita Bhatt Unavailable [phone] Allergies Allergen (clinical drug ingredient) Drug/Non Drug Allergy documented on EMR Reaction Allergy Type Onset Date Status Penicillin Unknown Drug Allergy Active Results Component Value Reference Range Notes Influenza Screen (in house) Reviewed date:04/11/2024 12:46:36 PM Interpretation: Performing Lab: Notes/Report: results Neg CBC Fingerstick (in house) Reviewed date:04/11/2024 12:46:47 PM Interpretation: Performing Lab: Notes/Report: wbc 3.8 3.5 - 10 lym 19.1 15 - 50 mid 4.7 2 - 15 gran 76.2 35 - 80 rbc 4.06 3.5 - 5.5 hgb 12.2 11.5 - 16.5 hct 36.9 35 - 55 mcv 90.9 75 - 100 mch 30.1 25 - 35 mchc 33.1 31 - 38 plat 123 100 - 400 Covid test (in house) Reviewed date:04/11/2024 12:46:23 PM Interpretation: Performing Lab: Notes/Report: Result: Neg REASON FOR VISIT poss sinus infection or flu Medications Medication SIG (Take, Route, Frequency, Duration) Notes Start Date End Date Status Vitamin D-3 125 MCG (5000 UT) as directed Orally Active Contrave 8-90 MG 2 tab(s) orally 2 ti mes a day 09/30/2016 Active Benzonatate 200 MG 1 capsule as needed Orally tid prn 04/11/2024 Active Promethazine-DM 6.25-15 MG/5ML 5 ml as needed Orally every 6 hrs prn 04/11/2024 Active Cyclobenzaprine HCl 5 MG TAKE 1 TABLET B Y MOUTH THREE TIMES DAILY; Duration: 10 Active Nortriptyline HCl 10 MG 1 capsule at bed time Orally Once a day; Duration: 30 day(s) Active Diclofenac Sodium 75 MG 1 tablet as need ed Orally Twice a day Active Rosuvastatin Calcium 40 MG Take 1 tablet by mouth once daily for 90 days; Duration: 90 Active Lisinopril-hydroCHLOROthiazi d e 10-12.5 MG Take 1 tablet by mouth once daily for 90 days; Duration: 90 Active Vital Signs Blood pressure systolic 112 mm Hg 04/12/19 25 Blood pressure diastolic 72 mm Hg 025 Heart Rate 100 /min 04/11/2024 Height 61 in 04/11/2024 Weight 165.6 lbs 04/11/2024 BMI 31.29 kg/m2 04/11/2024 Encounters Encounter Location Date Provider Diagnosis [facility] [address] [facility] [address] [place] [id number] 04/11/2024 Viat Bhatt URI (upper respirato ry infection) J06.9 Assessments Encounter Date Diagnosis (ICD Code) Assessment Notes Treatment Notes Treatment Clinical Notes Section Notes 04/11/2024 URI (upper respiratory infection) (ICD-10 - J06.9) fluids, rest, supportive measures for fever/symptom relief Plan Of Treatment Medication Medication Name Sig Start Date Stop Date Notes Benzonatate 200 MG 1 capsule as needed Orally tid prn 04/11/2024 Promethazine-DM 6.25-15 MG/5ML 5 ml as n eeded Orally every 6 hrs prn 04/11/2024 Treatment Notes Assessment Notes URI (upper respiratory infection) fluids , rest, supportive measures for fever/symptom relief Next Appt Details Follow Up: prn, Reason: Provider Name:Gilbert Garcia ry, 10/24/2024 10:30:00 AM, [address] [facility], [address], [place], [id number], Progress Notes * ROOSEVELT BLAIR: 9 (54 yo F)Acc No.[id number]:04/11/2024 Progress Notes Patient: Case ARELIS HANKS Provider: KUSH Sneed :1970 A ge:53 Y S ex:Female Date:04/11/2024 Address:[address] [place] [address] [place], [id number] Pcp:Gilbert Hernandez Subjective: * Chief Complaints: * 1 . Poss sinus infection or flu. * HPI: E NT/respiratory: 53 year old female presents with c/o sore throat. c/o cough N P. c/o nasal congestion P t presents today with c/o cough, nasal congestion, sinus pressure, ears feel stopped up, body aches. Pt sts that she is hopeful this is just being caused by allergies. Pt sts that she started to feel bad on Wednesday. c/o ear pain. c/o facial pain/pressure. c/o headache. c/o body aches. Denies : rhinorrhea. D enies : post nasal drainage. D enies : smoking. eating less and drinking OK; OTC cold med. * ROS: D ERMATOLOGY: no R roddy. [...] Heart Disease, Stroke. M other: alive. C hilen: alive. 1 brother(s) , 1 sister(s) . 2 son(s) - healthy. . Brother is . * Social History: C URRENT TOBACCO USE S moking Status: P atient does NOT smoke. * Medications: T aking Nortriptyline HCl 10 MG Capsule 1 capsule at bedtime Orally Once a day , Taking Diclofenac Sodium 75 MG Tablet Delayed Release 1 tablet as needed Orally Twice a day , Taking Vitamin D-3 125 MCG (5000 [...] TABLET BY MOUTH THREE TIMES DAILY , Discontinued Ibuprofen 800 MG Tablet 1 tablet with food or milk as needed Orally every 8 hrs , Discontinued Cefdinir 300 MG Capsule 1 cap(s) Orally Two times a day , Medication List reviewed and reconciled with the patient * Allergies: P enicillin. Objective: * Vitals: W t:165.6, Temp:98.2, BP:112/72, HR:100, O2 Sat:98% on RA, Nurse:MEHRDAD, Ht: 61, BMI:31.29. * Examination: E NT/Respiratory: General Appearance: well nourished and hydrated, NAD, alert, active. E yes: sclera and conjunctiva clear. E ars: auditory canals normal bilaterally, tympanic membranes normal bilaterally. N ose : nares patent. S inuses : non tender bilaterally. O ral cavity : erythema without exudate on pharynx. N duong : no cervical lymphadenopathy. H eart : RRR. L ungs: CTAB A&P. ? Assessment: * Assessment: 1. U RI (upper respiratory infection) - J06.9 (Primary) Plan: * Treatment: Value Reference Range r esults Neg * Lesia Enriquez 04/11/2024 12:01:21 PM > , Provider reviewed results while patient in office. ?LAB: CBC Fingerstick (in house) (Collection Date & Time - 04/11/2024)* Value Reference Range w bc 3.8 3.5 - 10 * l ym 19.1 15 - 50 * m id 4.7 2 - 15 * g ran 76.2 35 - 80 * r bc 4.06 3.5 - 5.5 * h gb 12.2 11.5 - 16.5 * h ct 36.9 35 - 55 * m cv 90.9 75 - 100 * m ch 30.1 25 - 35 * m chc 33.1 31 - 38 * p lat 123 100 - 400 * Zenobia Alarcon 04/11/2024 12:03 :37 PM > results reviewed w/ pt in office ?LAB: Covid test (in house) (Collection Date & Time - 04/11/2024)* Value Reference Range R esult: Neg * Lesia Enriquez 04/11/2024 12:01:54 PM > , Provider reviewed results while patient in office. Notes: fluids, rest, supportive measures for fever/symptom relief?? * Procedure Codes: 8 7804 Flu Test- Nasal Swab, Modifiers: QW , [address] [place], [address] COVID TEST IN HOUSE, Modifiers: QW , [address] CAPILLARY BLOOD DRAW, 82624 CBC WITH AUTO DIFF, 3074F SYST BP LT 130 MM HG, 3078F DIAST BP < 80 MM HG * Follow Up: p rn * Images: Billing Information: * Visit Code: 31758 Office Visit, Est Pt., Level 3. * Procedure Codes: 93510 Flu Test- Nasal Swab. Modifiers: QW [address] [place]. [address] COVID TEST IN HOUSE. Modifiers: QW 67404 CAPILLARY BLOOD DRAW. 17412 CBC WITH AUTO DIFF. 3074F SYST BP LT 130 MM HG. 3078F DIAST BP < 80 MM HG. 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 Pt sts that she is hopeful this is just being caused by allergies. Pt sts that she started to feel bad on Wednesday smoking body aches Examination Category Sub-Category Detail Notes Category Not es ENT/Respiratory Oral cavity : erythema without exudate on pharynx Sinuses : non tender bilateral ly Ears: auditory canals norm al bilaterally, tympanic membranes normal bilaterally Neck : no cervical lymphade nopathy Heart : RRR Lungs: CTAB A&P General Appearance: well nourished and h ydrated, NAD, alert, active Nose : nares patent Eyes: sclera and conjuncti va clear
--- OUTSIDE RECORDS SUMMARY | 2024-10-02 12:45 | XMS_ITS ---
Author Organization [facility] Address [address] [facility] [address] [place] [id number] Care Team Providers Care Bisque Grader Name Role Phone Gilbert Hernandez Primary Care Provider Allergies Allergen (clinical drug ingredient) Drug/Non Drug Allergy documented on EMR Reaction Allergy Type Onset Date Status Penicillin Unknown Drug Allergy Active REASON FOR VISIT ckup & refills Medications Medication SIG (Take, Route, Frequency, Duration) Notes Start Date End Date Status Diclofenac Sodium 75 MG 1 tablet as need ed Orally Twice a day Active traMADol HCl 50 MG 1 tablet as needed Orally Once a day Active Cyclobenzaprine HCl 5 MG TAKE 1 TABLET B Y MOUTH THREE TIMES DAILY; Duration: 10 Active Vitamin D-3 125 MCG (5000 UT) as directed Orally Active Lisinopril-hydroCHLOROthiazi d e 10-12.5 MG 1 tablet Orally Once a day Active Rosuvastatin Calcium 40 MG 1 tablet Oral ly Once a day Active Problems Problem Type SNOMED Code ICD Code Onset Dates Problem Status W/U Status Risk Notes Problem Arthritis of right knee (6482769141274 102) Arthritis of right knee (M17.11) Active confirmed Vital Signs Blood pressure systolic 128 mm Hg 10/03/19 25 Blood pressure diastolic 72 mm Hg 025 Heart Rate 92 /min 10/02/2024 Height 61 in 10/02/2024 Weight 163.0 lbs 10/02/2024 BMI 30.8 kg/m2 10/02/2024 Encounters Encounter Location Date Provider Diagnosis [facility] [address] [place] [id number] 10/02/2024 Gilbert Hernandez Mixed hyperlipidemia E78.2 ; Essential hypertension, hypertension with unspecified goal I10 ; Vitamin D deficiency E55.9 ; Impaired fasting glucose R73.01 ; Pain in right knee M25.561 and Arthritis of right knee M17.11 Assessments Encounter Date Diagnosis (ICD Code) Assessment Notes Treatment Notes Treatment Clinical Notes Section Notes 10/02/2024 Mixed hyperlipidemia (ICD-10 - E78.2) 10/02/2024 Essential hypertension, hypertension with unspecified goal (ICD-10 - I10) 10/02/2024 Vitamin D deficiency (ICD-10 - E55.9) 10/02/2024 Impaired fasting glucose (ICD-10 - R73.01) 10/02/2024 Pain in right knee (ICD-10 - M25.561) 10/02/2024 Arthritis of right knee (ICD-10 - M17.11) 10/02/2024 Other Patient is due for labs next month. Plan to have one blood draw to include pre-op labs needed for knee replacement surgery Plan Of Treatment Medication Medication Name Sig Start Date Stop Date Notes Vitamin D-3 125 MCG (5000 UT) as directed Orally Lisinopril-hydroCHLOROthiazi de 10-12.5 MG 1 tablet Orally Once a day Rosuvastatin Calcium 40 MG 1 tablet Orally Once a day Treatment Notes Assessment Notes Other Patient is due for l abs next month. Plan to have one blood draw to include pre-op labs needed for knee replacement surgery Next Appt Details Follow Up: 6 Months, Reason: Provider Name:Gilbert Garcia , 10/24/2024 10:30:00 AM, [address], [address], [place], [place], [phone], Progress Notes * JACQUIE BLAIRADOB: 9 (54 yo F)Acc No.[id number]:10/02/2024 Progress Notes Patient: ARELIS KNOWLES Provider: Eladio Hernandez M.D. :1970 A ge:54 Y S ex:Female Date:10/02/2024 Address:[address] [place] [address] [id number] Subjective: * Chief Complaints: * 1 . Ckup & refills. * HPI: C ardiology: 54 year old female presents with c/o Blood Pressure Elevated?Pt. here for checkup on Hypertension. c/o Hyperlipidemia P t is not fasting today. Pt states she needs lab order so she can have her blood drawn at [facility]. * ROS: D ERMATOLOGY: no R roddy. n o H salty. G ASTROENTEROLOGY: no N ausea. n o V omiting. U ROLOGY: no D ifficulty urinating. n o B lood in urine. * Medical History: H ypertension, Hyperlipidemia, Hypertriglyceridemia, Vitamin D Deficiency, Cologuard, 2020, Osteoarthritis, right knee, Meniscal tear, right knee. * Surgical History: D ental , Basal Cell Carcinoma , Right Knee Ablasion 01/12/2024. * Hospitalization/Major Diagno stic Procedure: D enies Past Hospitalization. * Family History: F ather: , diagnosed with Stroke, Heart Disease. M other: alive. Phil freitas: alive. 1 brother(s) , 1 sister(s) . 2 son(s) - healthy. . Brother is . * Social History: C URRENT TOBACCO USE: No S moking Status: P atient does NOT smoke. * Medications: T aking traMADol HCl 50 MG Tablet 1 tablet as needed Orally Once a day , Taking Diclofenac Sodium 75 MG Tablet Delayed Release 1 tablet as needed Orally Twice a day , Taking Vitamin D-3 125 MCG (5000 UT) Tablet as directed Orally , Taking Cyclobenzaprine HCl 5 MG Tablet TAKE 1 TABLET BY MOUTH THREE TIMES DAILY , Taking Lisinopril-hydroCHLOROthiazide 10-12.5 MG Tablet 1 tablet Orally Once a day , Taking Rosuvastatin Calcium 40 MG Tablet 1 tablet Orally Once a day , Discontinued Nortriptyline HCl 10 MG Capsule 1 capsule at bedtime Orally Once a day , Discontinued Contrave 8-90 MG Tablet Extended Release 12 Hour 2 tab(s) orally 2 times a day , Discontinued Promethazine-DM 6.25-15 MG/5ML Syrup 5 ml as needed Orally every 6 hrs prn , Discontinued Benzonatate 200 MG Capsule 1 capsule as needed Orally tid prn , Medication List reviewed and reconciled with the patient * Allergies: P enicillin. Objective: * Vitals: W t: 163.0, Temp: 98.0, BP: 128/72, HR: 92, Nurse: GARRY, Ht: 61, BMI:30.8. * Examination: G eneral Examination: General Appearance: N AD. H EENT: u nremarkable.?Oral cavity: n o lesions, mucosa moist and WNL, no erythema. N duong: s upple, no lymphadenopathy. H eart: R SR. L ungs: c lear to auscultation. N eurologic Exam: Intact, gait normal. S kin: n ormal, no rash. P eripheral pulses: n ormal (2+) bilaterally. E xtremities: n o leg edema. Assessment: * Assessment: 1. M ixed hyperlipidemia - E78.2 (Primary) 2 . E ssential hypertension, hypertension with unspecified goal - I10 3 . V itamin D deficiency - E55.9 ? 4 . I mpaired fasting glucose - R73.01 5 . P ain in right knee - M25.561 6 . A rthritis of right knee - M17.11 Plan: * Treatment: 2. E ssential hypertension, hypertension with unspecified goal Continue Lisinopril-hydroCHLOROthiazide Tablet, 10-12.5 MG, 1 tablet, Orally, Once a day. ? 3. V itamin D deficiency Continue Vitamin D-3 Tablet, 125 MCG (5000 UT), as directed, Orally. 4. O thers Notes: Patient is due for labs next month. Plan to have one blood draw to include pre-op labs needed for knee replacement surgery * Procedure Codes: 1 036F TOBACCO NON-USER, 3074F SYST BP LT 130 MM HG, 3078F DIAST BP < 80 MM HG * Follow Up: 6 Months * Images: Billing Information: * Visit Code: 15185 Office Visit, Est Pt., Level 4. * Procedure Codes: 1036F TOBACCO NON-USER. 3074F SYST BP LT 130 MM HG. 3078F DIAST BP < 80 MM HG. * Electronic signature of Dejah Hernandez MD on 10/24/2024 at 11:19 AM EDT Sign off status: Pending * Provider: Eladio Hernandez M.D. Date: 10/02/2024 Generated for Adonis phelps/Rohan/Kenyaitting on: 0 10/24/2024 11:19 AM EDT History and Physical Notes * HPI (History of Present Illness) Category Sub-Category Detail Notes Category Not es Cardiology Blood Pressure Elevated Pt. here for checkup on Hypertension Hyperlipidemia Pt is not fasting to day. Pt states she needs lab order so she can have her blood drawn at [facility] Examination Category Sub-Category Detail Notes Category Not es General Examination HEENT: unremarkable Heart: RSR Lungs: clear to auscultatio n Extremities: no leg edema General Appearance: NAD Skin: normal, no rash Neurologic Exam: Intact, gait normal Neck: supple, no lymphaden opathy Oral cavity: no lesions, mucosa m oist and WNL, no erythema Peripheral pulses: normal (2+) bilatera lly
--- OUTSIDE RECORDS SUMMARY | 2024-10-24 11:19 | XMS_ITS | Encounter Summary ---
Author Organization [facility] Address [address] [place] [address] Care Team Providers Care Boiler Testing Technician Name Role Phone Gilbert Hernandez MD Primary Care Provider [phone] Encounter Details Date Type Department Care Team ([facility] st Contact Info) Description 12/14/2022 Orders Only External Location [address] [place] [address] Provider, External Social History Tobacco Use Types Packs/Day Years Used Date Smoking Tobacco: Never Assessed Comments Unknown Sex and Gender Information Value Date Recorded Sex Assigned at Female 09/15/2023 11:35 AM EDT Legal Sex Female 8:34 PM EDT Gender Identity Female 09/15/2023 11:35 AM EDT Sexual Orientation Not on file documented as of this encounter Plan of Treatment Not on file documented as of this encounter Procedures Procedure Name Priority Date/Time Associated Diagnosis Comments XR MSK OUTSIDE IMAGES 12/14/2022 3:08 PM EST documented in this encounter Results * XR MSK OUTSIDE IMAGES (12/14/2022 3:08 PM EST) Anatomical Region Laterality Modality Radiographic Christy ging 12/14/2022 3:08 PM EST us External Provider IMG XR PROCEDURES Final Result documented in this encounter Visit Diagnoses Not on filedocumented in this encounter Care Teams Boiler Testing Technician Relationship Specialty Start Date End Date Gilbert Hernandez MD [address] [place] [address] PCP - General 09/13/23 documented as of this encounter
--- OUTSIDE RECORDS SUMMARY | 2024-10-24 11:19 | XMS_ITS | Encounter Summary ---
Author Organization [facility] Address [address] [place] [address] Care Team Providers Care Manager Speech Name Role Phone Gilbert Hernandez MD Primary Care Provider [phone] Reason for Visit * Reason Comments Med Refill Encounter Details Date Type Department Care Team (Late st Contact Info) Description 06/14/2024 Refill [facility] Interventional Pain Medicine [address] [place] [address] Rupesh Quinn MD [address] [facility] [address] [place] [address] Social History Tobacco Use Types Packs/Day Years Used Date Smoking Tobacco: Never Smokeless Tobacco: Never Comments No Sex and Gender Information Value Date Recorded Sex Assigned at Female 09/15/2023 11:35 AM EDT Legal Sex Female 8:34 PM EDT Gender Identity Female 09/15/2023 11:35 AM EDT Sexual Orientation Not on file documented as of this encounter Plan of Treatment Not on file documented as of this encounter Visit Diagnoses Not on filedocumented in this encounter Additional Health Concerns Assessment Noted Time A fall risk assessment has been complete d for the patient 04/04/2024 9:34 AM EST A Body Mass Index follow-up plan has been documented for the patient 04/04/2024 10:12 AM EST documented as of this encounter Care Teams Manager Speech Relationship Specialty Start Date End Date Gilbert Hernandez MD [address] [facility] [address] [place] [id number] PCP - General 09/13/23 documented as of this encounter
--- OUTSIDE RECORDS SUMMARY | 2024-10-24 11:19 | XMS_ITS | Clinical Summary ---
Author Organization Healthcare Address [address] [place] [address] Care Team Providers Care Terra Cotta Mason Name Role Phone Gilbert Hernandez MD Primary Care Provider [phone] Allergies Active Allergy Reactions Criticality Noted Date Comments Penicillins Rash,Other - please document in the comment field Low 08/17/2023 Medications ibuprofen 800 MG tablet Take 1 tablet (800 mg) by mouth 3 (three) times a day. 08/17/2023 Active lisinopril-hydr oCHLOROthiazide 10-12.5 MG tablet Take 1 tablet by mouth. 09/08/2023 Active rosuvastatin (Crestor) 40 MG tablet Take 1 tablet (40 mg) by mouth. 09/08/2023 Active cholecalciferol (Vitamin D-3) 5,000 Units tablet Take by mouth. Active cyclobenzaprine (Flexeril) 5 MG tablet every 8 (eight) hours. 10/22/2023 Active nortriptyline (Pamelor) 10 MG capsule Take 1 capsule (10 mg) by mouth nightly. 30 capsule 04/04/2024 Active Active Problems No known active problems Social History Tobacco Use Types Packs/Day Years Used Date Smoking Tobacco: Never Smokeless Tobacco: Never Tobacco Cessation:Counseling Given: Not Answered Comments No Sex and Gender Information Value Date Recorded Sex Assigned at Female 09/15/2023 11:35 AM EDT Legal Sex Female 8:34 PM EDT Gender Identity Female 09/15/2023 11:35 AM EDT Sexual Orientation Not on file Last Filed Vital Signs Vital Sign Reading Time Taken Comments Blood Pressure 116/82 04/04/2024 9:34 AM EST Pulse 104 04/04/2024 9:34 AM EST Temperature 37.5 C (99.5 F) 04/04/2024 9:34 AM EST Respiratory Rate 14 04/04/2024 9:34 AM EST Oxygen Saturation 100% 04/04/2024 9:34 AM EST Inhaled Oxygen Concentration - - Weight 74.8 kg (165 lb) 04/04/2024 9:34 AM EST Height 154.9 cm (5' 1 ) 04/04/2024 9:34 AM EST Body Mass Index 31.18 04/04/2024 9:34 AM EST Plan of Treatment Health Maintenance Due Date Last Done Comments [facility]-Depression Screening 1970 [facility]-HIV Screening 1970 [facility]-Hepatitis C Screening 1970 [facility]-Infant/Child/Adol SDOH Screenings 1968 [facility]- SDOH Screenings 1986 [facility]-Adult SDOH Screenings 1986 [facility]-Pap Smear 04/27/1995 04/26/1992, 09/26/1991 [facility]-Cervical Cancer Screening 1998 [facility]-HPV/Cotest 1998 04/26/1992, 09/26/1991 CT Colonography 2013 Colonoscopy 2013 FIT 2013 FOBT 2013 Sigmoidoscopy 2013 [facility]-Breast Cancer Screening 2018 [facility]-Pneumococcal Vaccine: 50+ Years (1 of 1 - PCV) 2018 [facility]-Zoster Vaccines (1 of 2) 2018 [facility]-Hepatitis B Vaccines (3 of 3 - Hep B Twinrix 3-dose series) 08/02/2018 03/04/2018, 01/14/2018 [id number] Vaccine (1 - season) 2024 [facility]-Influenza Vaccine (#1) 2024 FIT-DNA 03/08/2027 03/08/2024, 05/23/2020 [facility]-Colorectal Cancer Screening 03/08/2027 [facility]-DTaP,Tdap,and Td Vaccines (2 - Td or Tdap) 03/03/2030 03/03/2020, 04/14/1996 [facility]-Hepatitis A Vaccines Aged Out 03/04/2018, 08/2017 No longer eligible based on patient's age to complete this topic [facility]-Obesity Intervention Completed 025, 01/12/2024, 10/15/2023, Additional history exists HPV Vaccines Aged Out No longer eligi ble based on patient's age to complete this topic [facility]-HIB Vaccines Aged Out No longer e ligible based on patient's age to complete this topic [facility]-IPV Vaccines Aged Out No longer e ligible based on patient's age to complete this topic [facility]-Rotavirus Vaccines Aged Out No lo nger eligible based on patient's age to complete this topic Procedures Procedure Name Priority Date/Time Associated Diagnosis Comments CYTO DATA CONVERSION Routine 04/26/1992 12:00 AM EST from Last 3 Months or Most Recently Relevant to Health Maintenance Results * Cytology (04/26/1992 12:00 AM EST) 04/26/1992 04/29/1992 Narrative SUNQUEST - 05/06/1992 12:00 AM EST [facility] MR #: [id number] [facility] [place], [place] [address] 1970 (Age: 21) FW Collect Date: 04/26/1992 00:00 Receipt Date: 04/29/1992 00:00 Page 1 DEPARTMENT OF PATHOLOGY AND LABORATORY MEDICINE CYTOPATHOLOGY REPORT Email: [email or web address] * Converted Case * This report may not match the original report format ATTENDING MD/Practitioner: Monserrat Osuna MD Service: Location: Reported: 05/06/1992 00:00 Collected: 04/26/1992 00:00 INTERPRETATION CERVICAL SCRAPE/ENDOCERVICAL BRUSH WITHIN NORMAL LIMITS. SATISFACTORY FOR INTERPRETATION. Electronically Signed Out JONY Rashid (ASCP) Mroa Kaur MD Cervical cytology is a screening test primarily for squamous cancers and precursors and has associated false negative and positive results. New technologies such as liquid based sampling may decrease but will not eliminate all false negative results. Regular screening and follow-up of unexplained clinical signs and symptoms are recommended to minimize false negative results. Please see the ASCCP website (www.asccp.org) for followup recommendations. If HPV testing was requested, correlation with the results is suggested (please call Microbiology at [phone] for results). CLINICAL INFORMATION: Menstrual History: {Not Provided} Date of Last Menstrual Period: {Not Provided} SPECIMEN DESCRIPTION: A: CERVICAL/VAGINAL SMEAR, PAP ICD: F: {Not Entered} SNOMED CODES: 1; [id number] In cases where a pathologist has signed out the report, the service has been rendered in part by a resident. The signing pathologist has performed and is responsible for the reported pathologic evaluation. Gato Osuna MD LAB PATHOLOGY ORDERABLES Camilla cardenas Result SUNQUEST from Last 3 Months or Most Recently Relevant to Health Maintenance Insurance Care Teams Terra Cotta Mason Relationship Specialty Start Date End Date Gilbert Hernandez MD [address] [facility] [address] [place] [address] PCP - General 09/13/23
--- OUTSIDE RECORDS SUMMARY | 2024-10-24 11:19 | XMS_ITS | Encounter Summary ---
Author Organization Healthcare Address [address] [place] [address] Care Team Providers Care Semiconductor Development Technician Name Role Phone Gilbert Hernandez MD Primary Care Provider [phone] Reason for Visit * Reason Comments Med Refill Encounter Details Date Type Department Care Team (Late st Contact Info) Description 05/07/2024 Refill [facility] Interventional Pain Medicine [address] [place] [id number] Jevon Luz [address] [place] [address] Social History Tobacco Use Types Packs/Day Years [...] documented as of this encounter Care Teams Semiconductor Development Technician Relationship Specialty Start Date End Date Gilbert Hernandez MD [address] [place] [address] PCP - General 09/13/23 documented as of this encounter
--- NOTE | 2024-10-24 11:20 | ECG_ITS ---
APPROVED REPORT Exam: Resting ECG HR:74 bpm ECG Measurements Heart Rate 74 AXES PA 143 P 14 QRSd 98 QRS 17 QT 360 T 28 QTc 387 Conclusion SINUS RHYTHM Late R wave progression ABNORMAL ECG UNCONFIRMED REPORT Electronically signed by : Raul Delgado MD 10/25/2024 08:25:34
--- OUTSIDE RECORDS SUMMARY | 2024-10-24 11:20 | XMS_ITS | Encounter Summary ---
Author Organization Healthcare Address [address] [place] [address] Care Team Providers Care Mat Cleaning Machine Operator Name Role Phone Gilbert Hernandez MD Primary Care Provider [phone] Encounter Details Date Type Department Care Team ([facility] st Contact Info) Description 08/16/2023 Orders Only External Location [address] [place] [address] Provider, External Social History Tobacco Use Types [...] Associated Diagnosis Comments XR MSK OUTSIDE IMAGES 08/16/2023 11:01 AM EDT documented in this encounter Results * XR MSK OUTSIDE IMAGES (08/16/2023 11:01 AM EDT) Anatomical Region Laterality Modality Radiographic Christy ging 08/16/2023 11:0 1 AM EDT us External Provider IMG XR PROCEDURES Final Result documented in this encounter Visit Diagnoses Not on filedocumented in this encounter Care Teams Mat Cleaning Machine Operator Relationship Specialty Start Date End Date Gilbert Hernandez MD [address] [place] [address] PCP - General 09/13/23 documented as of this encounter
--- OUTSIDE RECORDS SUMMARY | 2024-10-24 11:20 | XMS_ITS | Encounter Summary ---
Author Organization Healthcare Address [address] [place] [address] Care Team Providers Care Pig Machine Supervisor Name Role Phone Gilbert Hernandez MD Primary Care Provider Encounter Details Date Type Department Care Team ([facility] [place] [facility] st Contact Info) Description 10/03/2021 Orders Only External Location [address] [place] [address] Provider, External Social History Tobacco Use Types [...] Associated Diagnosis Comments XR MSK OUTSIDE IMAGES 10/03/2021 11:36 AM EDT documented in this encounter Results * XR MSK OUTSIDE IMAGES (10/03/2021 11:36 AM EDT) Anatomical Region Laterality Modality Radiographic Christy ging 10/03/2021 11:3 6 AM EDT us External Provider IMG XR PROCEDURES Final Result documented in this encounter Visit Diagnoses Not on filedocumented in this encounter Care Teams Pig Machine Supervisor Relationship Specialty Start Date End Date Gilbert Hernandez MD [address] [place], [place] [id number] PCP - General 09/13/23 documented as of this encounter
--- OUTSIDE RECORDS SUMMARY | 2024-10-24 11:20 | XMS_ITS | Encounter Summary ---
Author Organization Healthcare Address [address] [place] [address] Care Team Providers Care Skiver Machine Name Role Phone Gilbert Hernandez MD Primary Care Provider [phone] Encounter Details Date Type Department Care Team ([facility] st Contact Info) Description 08/16/2023 Orders Only External Location [address] [place] [address] Provider, External Social History Tobacco Use Types [...] on filedocumented in this encounter Care Teams Skiver Machine Relationship Specialty Start Date End Date Gilbert Hernandez MD [address] [place] [address] PCP - General 09/13/23 documented as of this encounter
--- OUTSIDE RECORDS SUMMARY | 2024-10-24 11:20 | XMS_ITS | Encounter Summary ---
Author Organization Healthcare Address [address] [place] [address] Care Team Providers Care Director Operating Room Name Role Phone Gilbert Hernandez MD Primary Care Provider Encounter Details Date Type Department Care Team ([facility] st Contact Info) Description 11/07/2021 Orders Only External Location [address] [place] [address] Provider, External Social History Tobacco Use Types [...] Procedure Name Priority Date/Time Associated Diagnosis Comments MR MSK OUTSIDE IMAGES 11/07/2021 9:14 AM EDT documented in this encounter Results * MR MSK OUTSIDE IMAGES (11/07/2021 9:14 AM EDT) Anatomical Region Laterality Modality Magnetic Resonan ce 11/07/2021 9:14 AM EDT us External Provider IMG MRI PROCEDURES Final Resul t documented in this encounter Visit Diagnoses Not on filedocumented in this encounter Care Teams Director Operating Room Relationship Specialty Start Date End Date Gilbert Hernandez MD [address] [place] [address] PCP - General 09/13/23 documented as of this encounter
--- OUTSIDE RECORDS SUMMARY | 2024-10-24 11:20 | XMS_ITS | Encounter Summary ---
Author Organization Healthcare Address [address] [place] [address] Care Team Providers Care Staff Certified Nurse Midwife Name Role Phone Gilbert Hernandez MD Primary Care Provider [phone] Reason for Referral * Consultation (Routine) - Closed Specialty Diagnoses / Procedures Referred By Roxy galaviz Referred To Contact Pain Medicine Diagnoses Osteoarthritis of right knee, unspecified osteoarthritis type Hubert Oliver DO [address] [place] [address] Phone: tel: fax: [facility] Interventional Pain Medicine [address] [place] [address] Phone: tel: fax: Referral ID Status Reason Start Date Expiration Date V isits Requested Visits Authorized [id number] Closed Specialty Services Required 08/18/2023 02/16/2025 1 1 Encounter Details Date Type Department Care Team (Latest Contact Info) Description 08/18/2023 [facility] [address] [place] [address] Hubert Oliver DO [address] [place] [id number] Osteoarthritis of right knee, unspecified osteoarthritis type (Primary Dx) Social History Tobacco Use Types Packs/Day Years Used Date Smoking Tobacco: Never Assessed Comments Unknown Sex and Gender Information Value Date Recorded Sex Assigned at Female 09/15/2023 11:35 AM EDT Legal Sex Female 8:34 PM EDT Gender Identity Female 09/15/2023 11:35 AM EDT Sexual Orientation Not on file documented as of this encounter Plan of Treatment Scheduled Referrals Name Type Priority Associated Diagnoses Orde r Schedule Ambulatory referral to Interventional Pain Outpatient Referral Routine Osteoarthritis of right knee, unspecified osteoarthritis type Expected: 08/18/2023 (Approximate), Expires: 08/17/2024 documented as of this encounter Visit Diagnoses Diagnosis Osteoarthritis of right knee, unspecified osteoarthritis type- Primary documented in this encounter Care Teams Staff Certified Nurse Midwife Relationship Specialty Start Date End Date Gilbert Hernandez MD [address] [place] [address] PCP - General 09/13/23 documented as of this encounter
--- OUTSIDE RECORDS SUMMARY | 2024-10-24 11:20 | XMS_ITS | Patient Health Record ---
Author Organization [facility] Address [address] [facility] [address] [place] [id number] Care Team Providers Care Art Installer Name Role Phone Gilbert Hernandez Primary Care Provider [phone] Bhatt [facility] Unavailable [phone] Allergies Allergen (clinical drug ingredient) Drug/Non Drug [...] AM Interpretation: Performing Lab: Notes/Report: Result: Neg Influenza Screen (in house) Reviewed date:04/11/2024 12:46:36 [...] PM Interpretation: Performing Lab: Notes/Report: Result: Neg Cologuard Reviewed date:03/17/2024 09:32:39 AM Interpretation:Negative Performing Lab: Notes/Report: Negative Cologuard Negative Reason For Referral No Information Medications Medication SIG (Take, Route, Frequency, Duration) Notes Start Date End Date Status traMADol HCl 50 MG 1 tablet as needed Orally Once a day Active Diclofenac Sodium 75 MG 1 tablet as need ed Orally Twice a day Active Triamcinolone Acetonide 0.1 % 1 application Externally twice a day 10/24/2024 Active Cyclobenzaprine HCl 5 MG TAKE 1 TABLET B Y MOUTH THREE TIMES DAILY; Duration: 10 Active Rosuvastatin Calcium 40 MG 1 tablet Oral ly Once a day Active Lisinopril-hydroCHLOROthiazi de 10-12.5 MG 1 tablet Orally Once a day Active Vitamin D-3 125 MCG (5000 UT) as directed Orally Active Immunizations Vaccine Route Administration Date Status Comme nts DT, 7 YEARS OR OLDER Unknown 04/14/1996 Administered Tetanus Tdap-Adacel (over 7yrs) IM Intramuscular 03/03/2020 Administered Twinrix-Hep A and Hep B Unknown 03/04/2018 Administered Problems Problem Type SNOMED Code ICD Code Onset Dates Problem Status W/U Status Risk Notes Problem Vitamin D deficiency (88202951) Vitamin D deficiency (E55.9) Active confirmed Problem BMI 30+ - obesity (103196901) BMI 32.0-32.9,adult (Z68.32) Active confirmed Problem Impaired fasting glucose (380919258) Impaired fasting glucose (R73.01) Active confirmed Problem Mixed hyperlipidemia (104615387) Mixed hyperlipidemia (E78.2) Active confirmed Problem Chronic pain (86841575) Other chronic pain (G89.29) Active confirmed Problem Obesity (018270306) Non morbid obesity due to excess calories (E66.09) Active confirmed Problem History of nutritional deficiency (36927097113755) History of vitamin D deficiency (Z86.39) Active confirmed Problem Essential hypertension (95872070) Essential hypertension, hypertension with unspecified goal (I10) Active confirmed Problem History of malignant basal cell tumor of skin (276528209) History of basal cell carcinoma (Z85.828) Active confirmed Problem Arthritis of right knee (4157961829903753 ) Arthritis of right knee (M17.11) Active confirmed Problem Obesity (881006496) Non morbid obesity (E66.9) Active confirmed Vital Signs Heart Rate 107 /min 10/24/2024 Blood pressure diastolic 70 mm Hg 10/24/2024 Height 61 in 10/24/2024 Blood pressure systolic 122 mm Hg 10/24/2024 Weight 161.0 lbs 10/24/2024 BMI 30.42 kg/m2 10/24/2024 Encounters Encounter Location Date Provider Diagnosis [facility] [address] [place], [place] [id number] 01/29/2024 Gilbert Wilcox Acute URI J06.9 [facility] [address] [facility] [address] [place], [place] [id number] 04/11/2024 Vit[place] URI (upper respirato ry infection) J06.9 [facility] [address] [place], [place] [id number] 10/02/2024 Gilbert Wilcox Mixed hyperlipidemia E78.2 ; Essential hypertension, hypertension with unspecified goal I10 ; Vitamin D deficiency E55.9 ; Impaired fasting glucose R73.01 ; Pain in right knee M25.561 and Arthritis of right knee M17.11 [facility] [address] [place], [place] [id number] 10/24/2024 Gilbert Wilcox Pre-op exam Z01.818 ; Pain in right knee M25.561 ; Other chronic pain G89.29 ; Arthritis of right knee M17.11 ; Essential hypertension, hypertension with unspecified goal I10 ; Vitamin D deficiency E55.9 and Rash R21 [facility] [address] [place], [place] [id number] 01/17/2024 Gilbert Wilcox [facility] [address] [place], [place] [id number] 01/31/2024 Gilbert Wilcox Acute URI J06.9 [facility] [address] [place] [id number] 09/25/2024 Gilbert Hernandez Assessments Encounter Date Diagnosis (ICD Code) Assessment Notes Treatment Notes Treatment Clinical Notes Section Notes 01/29/2024 Acute URI (ICD-10 - J06.9) 01/31/2024 Acute URI (ICD-10 - J06.9) 04/11/2024 URI (upper respiratory infection) (ICD-10 - J06.9) fluids, rest, supportive measures for fever/symptom relief 10/02/2024 Mixed hyperlipidemia (ICD-10 - E78.2) 10/24/2024 Pre-op exam (ICD-10 - Z01.818) 10/24/2024 Pain in right knee (ICD-10 - M25.561) 10/02/2024 Essential hypertension, hypertension with unspecified goal (ICD-10 - I10) 10/24/2024 Other chronic pain (ICD-10 - G89.29) 10/02/2024 Vitamin D deficiency (ICD-10 - E55.9) 10/02/2024 Impaired fasting glucose (ICD-10 - R73.01) 10/24/2024 Arthritis of right knee (ICD-10 - M17.11) 10/24/2024 Essential hypertension, hypertension with unspecified goal (ICD-10 - I10) 10/02/2024 Pain in right knee (ICD-10 - M25.561) 10/24/2024 Vitamin D deficiency (ICD-10 - E55.9) 10/02/2024 Arthritis of right knee (ICD-10 - M17.11) 10/24/2024 Rash (ICD-10 - R21) 10/02/2024 Other Patient is due for labs next month. Plan to have one blood draw to include pre-op labs needed for knee replacement surgery Plan Of Treatment Pending Test Test Name Order Date EKG 10/24/2024 H-CBC 10/24/2024 H-BMP 10/24/2024 H-VITAMIN D 10/24/2024 H-Lipid Panel 10/24/2024 H-Glycohemoglobin A1C 10/24/2024 H-MRSA screen 10/24/2024 Next Appt Details Provider Name:Gilbert Garcia ry, 10/24/2024 10:30:00 AM, [address], [place], [id number], Insurance Providers Payer Name Payer Address Payer Phone Subscriber Number Group Number Insured Name Patient Relationship to Insured Coverage Start Date Coverage End Date AUDRA RODRIGUEZ [employer] [address] [place] [address] [id number] ARELIS BLAIR Self - patient is the insured Medications Administered Medication Instructions Date of Administration Dosage Notes Dexamethasone 09/29/2018 1 mL Dexamethasone 10/06/2019 1 mL Dexamethasone 09/24/2021 1 mL Dexamethasone 07/14/2022 1 mL Medical (General) History Medical History History ICD Code Hypertension Hyperlipidemia Hypertriglyceridemia Vitamin D Deficiency Col2020 osteoarthritis, right knee Meniscal tear, right knee Surgical History Surgery Date(Month/Year) Dental Basal Cell Carcinoma Right Knee Ablasion 01/12/2024
[2024-10-24 12:09] LABS: Hematocrit 40.1 % (37.0-47.0); Hemoglobin 13.2 g/dL (12.2-16.2); Immature Granulocytes % 0.1 %; Mean Corpuscular HGB Conc 32.9 g/dL (31.8-35.4); Mean Corpuscular Hemoglobin 29.7 pg (27.0-31.2); Mean Corpuscular Volume 90.1 fl (81-99); Nucleated Red Blood Cells % 0 %; Platelet Count 281 K/mm3 (142-424); Red Blood Count 4.45 M/mm3 (4.20-5.40); Red Cell Distribution Width-SD 41.6 fL; White Blood Count 7.3 K/mm3 (4.8-10.8)
[2024-10-24 12:39] LABS: Chloride 99 mmol/L (98-107); Potassium 4.0 mmoL/L (3.5-5.1); Sodium 138 mmol/L (136-145)
[2024-10-24 12:42] LABS: Anion Gap 17.0 mEq/L (5-15); Blood Urea Nitrogen 30 mg/dl (7-17); Carbon Dioxide 26 mmol/L (22.0-30.0); Cholesterol 197 mg/dl (140-200); Creatinine,Serum 0.70 mg/dl (0.52-1.04); Estimated Glomerular Filt Rate 87 ml/min (>60); GFR (African American) 105 ML/MIN (>60); Triglycerides 126 mg/dl (30-150)
[2024-10-24 12:43] LABS: Calcium 10.3 mg/dl (8.4-10.2); Glucose 96 mg/dl (74-100); HDL Cholesterol 83 mg/dl (40-60)
[2024-10-24 13:01] LABS: 25-OH Vitamin D, Total 63.1 ng/mL (30-100)
[2024-10-24 13:16] LABS: Hemoglobin A1C 5.6 % (4.0-6.0)
== END 2024-10-24 23:59 | disposition home or self-care (01) ==
LOC: RT 11:06
PROVIDERS: PCP Family Medicine; Visit Provider Family Medicine
DX: Z01.810 Encounter for preprocedural cardiovascular examination (principal); Z01.812 Encounter for preprocedural laboratory examination; I10 Essential (primary) hypertension; E55.9 Vitamin D deficiency, unspecified; R94.31 Abnormal electrocardiogram [ECG] [EKG]
CPT/HCPCS: 36415; 80048; 80061; 82306; 83036; 85025; 87081; 93005

== ENCOUNTER 2024-12-08 13:00 | Outpatient (RCR) | payer BC, OTHER, SELFPAY | END 2024-12-08 23:59 | disposition home or self-care (01) | LOC: PT 13:00 | PROVIDERS: PCP Family Medicine; Visit Provider Physician Assistant | DX: Z47.89 Encounter for other orthopedic aftercare (principal); Z96.651 Presence of right artificial knee joint | CPT/HCPCS: 97110; 97112; 97140; 97162 ==

== ENCOUNTER 2025-01-03 14:00 | Outpatient (RCR) | payer BC, OTHER, SELFPAY | END 2025-01-03 23:59 | disposition home or self-care (01) | LOC: PT 14:00 | PROVIDERS: PCP Family Medicine; Visit Provider Physician Assistant | DX: Z47.89 Encounter for other orthopedic aftercare (principal); Z96.652 Presence of left artificial knee joint | CPT/HCPCS: 97110; 97112; 97140; 97530 ==

== ENCOUNTER 2025-01-29 14:00 | Outpatient (RCR) | payer BC, OTHER, SELFPAY | END 2025-01-29 23:59 | disposition home or self-care (01) | LOC: PT 14:00 | PROVIDERS: PCP Family Medicine; Visit Provider Physician Assistant | DX: Z96.651 Presence of right artificial knee joint (principal) | CPT/HCPCS: 97110; 97530 ==